=== PATIENT | female | born 1970 | race Caucasian/White ===

== ENCOUNTER → 2023-02-24 | Outpatient (CLI) | payer OTHER ==
[2023-02-24 21:00] LABS: Basophils # (A) 0.09 X 10*3/uL (0.00-0.10); Eosinophils # (A) 0.13 X 10*3/uL (0.04-0.35); Eosinophils % (A) 1.5 %; HCT 40.6 % (37.2-46.3); HGB 13.5 g/dL (12.0-15.0); Immature Grans, Automated 0.3 %; Lymphocytes % (A) 33.7 %; MCH 28.8 pg (27.0-32.0); MCHC 33.3 g/dL (32.0-37.0); MCV 86.8 fL (80.0-97.0); Mean Platelet Volume 10.9 fL (9.5-12.2); Monocytes % (A) 5.6 %; NRBC Per 100 WBC 0 /100 WBCS (0.0-0.0); Neutrophils # (A) 5.14 X 10*3/uL (1.80-7.70); Neutrophils % (A) 57.9 %; Platelet Count 334 X 10*3/uL (140-440); RBC 4.68 X 10*6/uL (4.10-5.20); RDW 13.2 % (11.5-14.5); WBC 8.89 X 10*3/uL (4.50-10.00)
[2023-02-25 03:13] LABS: ALT 31 U/L (8-44); AST 21 U/L (13-35); African American GFR (CKD) 116.8 (60.0-200.0); Albumin/Globulin Ratio 1.74 (1.60-3.17); Alkaline Phosphatase 85 U/L (41-126); BUN/Creat Ratio 14.93 Ratio (12.00-20.00); Blood Urea Nitrogen 10.3 mg/dL (9.0-27.0); Calcium 10.5 mg/dL (8.7-10.3); Carbon Dioxide 23.2 mmol/L (20.0-27.5); Chloride 103 mmol/L (96-109); Chol/HDL Ratio 5.26 Ratio; Globulin 2.8 g/dL (1.6-3.3); Glucose 89 mg/dL (70-110); LDL Cholesterol,Calculated 199.7 mg/dL (0.0-131.0); Non-African American GFR(CKD) 100.8 (60.0-200.0); Potassium 4.2 mmol/L (3.5-5.5); Sodium 140 mmol/L (135-145); Total Protein 7.8 g/dL (6.2-8.2)
[2023-02-25 04:59] LABS: Appearance,Urine Clear (Clear); Bilirubin,Urine Negative (Negative); Blood,Urine Negative (Negative); Color,Urine Yellow (Yellow); Ketones,Urine Trace mg/dL (Negative); Nitrite,Urine Negative (Negative); Urobilinogen,Urine 0.2 (0.2,1.0)
== END | disposition home or self-care (01) ==
LOC: LABWHC1 15:13
PROVIDERS: ATTEND Physician Assistant
DX: Z00.00 Encounter for general adult medical examination without abnormal findings (principal)
CPT/HCPCS: 36415; 80053; 80061; 81003; 84443; 85025

== ENCOUNTER → 2023-05-06 | Outpatient (CLI) | payer OTHER ==
[2023-05-06 16:35] LABS: ALT 28 U/L (8-44); AST 17 U/L (13-35); Calcium 10.6 mg/dL (8.7-10.3); Chol/HDL Ratio 3.86 Ratio; LDL Cholesterol,Calculated 107.8 mg/dL (0.0-131.0)
== END | disposition home or self-care (01) ==
LOC: LABWHC1 08:59
PROVIDERS: ATTEND Physician Assistant
DX: E83.52 Hypercalcemia (principal); E78.5 Hyperlipidemia, unspecified
CPT/HCPCS: 36415; 80061; 82310; 84450; 84460

== ENCOUNTER → 2023-05-20 | Outpatient (CLI) | payer OTHER ==
[2023-05-20 20:49] LABS: Calcium 10.6 mg/dL (8.7-10.3)
== END | disposition home or self-care (01) ==
LOC: LABWHC1 13:24
PROVIDERS: ATTEND Family Medicine
DX: E83.52 Hypercalcemia (principal)
CPT/HCPCS: 36415; 82306; 82310; 83970

== ENCOUNTER → 2023-05-26 | Outpatient (CLI) | payer OTHER | END | disposition home or self-care (01) | LOC: LABWHC1 13:26 | PROVIDERS: ATTEND Family Medicine | DX: E83.52 Hypercalcemia (principal) | CPT/HCPCS: 36415 ==

== ENCOUNTER → 2024-03-02 | Outpatient (CLI) | payer OTHER ==
[2024-03-02 15:44] LABS: Basophils # (A) 0.06 X 10*3/uL (0.00-0.10); Basophils % (A) 1.1 %; Eosinophils # (A) 0.19 X 10*3/uL (0.04-0.35); Eosinophils % (A) 3.6 %; HCT 42.7 % (37.2-46.3); HGB 13.6 g/dL (12.0-15.0); Lymphocytes # (A) 1.97 X 10*3/uL (0.90-5.00); Lymphocytes % (A) 37.5 %; MCH 27.8 pg (27.0-32.0); MCHC 31.9 g/dL (32.0-37.0); MCV 87.1 FL (80.0-97.0); Mean Platelet Volume 11.1 FL (9.5-12.2); Monocytes # (A) 0.34 X 10*3/uL (0.20-1.00); Monocytes % (A) 6.5 %; NRBC Per 100 WBC 0 X 10*3/uL (0.00-0.01); Neutrophils # (A) 2.69 X 10*3/uL (1.80-7.70); Neutrophils % (A) 51.1 %; Platelet Count 310 X 10*3/uL (140-440); RDW 13.4 % (11.5-14.5); WBC 5.26 X 10*3/uL (4.50-10.00)
[2024-03-02 16:00] LABS: ALT 24 U/L (8-44); AST 19 U/L (13-35); Albumin 4.7 g/dL (3.8-4.9); Albumin/Globulin Ratio 1.88 Ratio (1.60-3.17); Alkaline Phosphatase 85 U/L (41-126); BUN/Creat Ratio 19.38 Ratio (12.00-20.00); Blood Urea Nitrogen 15.5 mg/dL (9.0-27.0); Calcium 10.6 mg/dL (8.7-10.3); Carbon Dioxide 24.3 mmol/L (21.6-31.8); Chloride 103 mmol/L (96-109); Chol/HDL Ratio 5.02 Ratio; Globulin 2.5 g/dL (1.6-3.3); Glucose 99 mg/dL (70-110); LDL Cholesterol,Calculated 182.6 mg/dL (0.0-131.0); Potassium 4.6 mmol/L (3.5-5.5); Sodium 139 mmol/L (135-145); T4, Free (Free Thyroxine) 1.37 ng/dL (0.80-1.80); Total Bilirubin 0.3 mg/dL (0.3-1.2); Total Protein 7.2 g/dL (6.2-8.2)
== END | disposition home or self-care (01) ==
LOC: LABWHC1 07:47
PROVIDERS: ATTEND Physician Assistant
DX: Z00.00 Encounter for general adult medical examination without abnormal findings (principal)
CPT/HCPCS: 36415; 80053; 80061; 84439; 84443; 84481; 85025

== ENCOUNTER → 2024-03-29 | Outpatient (CLI) | payer OTHER ==
--- NOTE | 2024-04-02 12:29 | MM ---
Reason for Exam: Screening (asymptomatic). Last mammogram was performed 2 year(s) and 4 month(s) ago. Patient History: Menarche at age 12. First Full-Term at age 22. Patient has history of breast feeding. Last menstrual period: 11/24/2023 Risk Values: Lexy 5 year model risk: 1.0%. NCI Lifetime model risk: 8.5%. Prior Study Comparison: 07/13/2018 Bilateral Screening Mammogram, [facility]. 11/16/2021 Bilateral Screening Mammogram, [facility]. Tissue Density: The breasts are heterogeneously dense, which may obscure small masses. Findings: Analyzed By CAD. The pattern is symmetrical. Benign round calcifications are within the right breast. No significant interval change is evident. No suspicious groups of microcalcifications, spiculated or lobular masses, architectural distortion or other secondary signs of malignancy are mammographically apparent. Overall Assessment: Benign, BI-RAD 2 Management: Screening Mammogram of both breasts in 1 year. A negative mammogram report should not preclude additional follow up of suspicious palpable abnormalities. Patient should continue monthly self breast exam. A clinical breast exam by your physician is recommended on an annual basis and results should be correlated with mammographic findings. Note on Lexy scores and lifetime risk: 1. A Lexy score greater than 3% is considered moderate risk. If this is the case, consider specialist referral to assess eligibility for a risk reducing agent. 2. If overall lifetime risk for the development of breast cancer is 20% or higher, the patient may qualify for future screening with alternating mammogram and breast MRI. Electronically signed and approved by: Darrion Jimenez D.O. Radiologis
== END | disposition home or self-care (01) ==
LOC: RADMAMWWP 08:54
PROVIDERS: ATTEND Family Medicine
DX: Z12.31 Encounter for screening mammogram for malignant neoplasm of breast (principal)
CPT/HCPCS: 77063; 77067

== ENCOUNTER → 2024-05-04 | Outpatient (CLI) | payer OTHER ==
[2024-05-04 10:39] LABS: ALT 22 U/L (8-44); AST 19 U/L (13-35); Chol/HDL Ratio 3.45 Ratio; LDL Cholesterol,Calculated 110.9 mg/dL (0.0-131.0)
== END | disposition home or self-care (01) ==
LOC: LABWHC1 07:20
PROVIDERS: ATTEND Physician Assistant
DX: E78.00 Pure hypercholesterolemia, unspecified (principal)
CPT/HCPCS: 36415; 80061; 84450; 84460

== ENCOUNTER → 2025-03-16 | Outpatient (CLI) | payer OTHER ==
[2025-03-16 15:09] LABS: Basophils # (A) 0.05 X 10*3/uL (0.00-0.10); Eosinophils # (A) 0.18 X 10*3/uL (0.04-0.35); Eosinophils % (A) 3.5 %; HCT 41.9 % (37.2-46.3); HGB 13.5 g/dL (12.0-15.0); Lymphocytes # (A) 1.99 X 10*3/uL (0.90-5.00); Lymphocytes % (A) 39.2 %; MCH 28.1 pg (27.0-32.0); MCHC 32.2 g/dL (32.0-37.0); MCV 87.1 FL (80.0-97.0); Mean Platelet Volume 11.3 FL (9.5-12.2); Monocytes # (A) 0.33 X 10*3/uL (0.20-1.00); Monocytes % (A) 6.5 %; NRBC Per 100 WBC 0 X 10*3/uL (0.00-0.01); Neutrophils # (A) 2.52 X 10*3/uL (1.80-7.70); Neutrophils % (A) 49.6 %; Platelet Count 305 X 10*3/uL (140-440); RBC 4.81 X 10*6/uL (4.10-5.20); RDW 12.7 % (11.5-14.5); WBC 5.08 X 10*3/uL (4.50-10.00)
[2025-03-16 15:18] LABS: ALT 30 U/L (8-44); AST 20 U/L (13-35); Albumin 4.6 g/dL (3.8-4.9); Albumin/Globulin Ratio 1.92 Ratio (1.60-3.17); Alkaline Phosphatase 85 U/L (41-126); BUN/Creat Ratio 15.14 Ratio (12.00-20.00); Blood Urea Nitrogen 10.6 mg/dL (9.0-27.0); Calcium 9.8 mg/dL (8.7-10.3); Carbon Dioxide 24.4 mmol/L (21.6-31.8); Chloride 105 mmol/L (96-109); Globulin 2.4 g/dL (1.6-3.3); Glucose 94 mg/dL (70-110); LDL Cholesterol,Calculated 99.8 mg/dL (0.0-131.0); Potassium 4.5 mmol/L (3.5-5.5); Sodium 142 mmol/L (135-145); T4, Free (Free Thyroxine) 1.53 ng/dL (0.80-1.80); Total Bilirubin 0.3 mg/dL (0.3-1.2); VLDL Calculation 18.06 mg/dL (5.00-40.00)
[2025-03-16 16:16] LABS: Appearance,Urine Clear (Clear); Bilirubin,Urine Negative (Negative); Blood,Urine Negative (Negative); Color,Urine Yellow (Yellow); Ketones,Urine Negative (Negative); Nitrite,Urine Negative (Negative); PH, Urine 5.5; Specific Gravity,Urine 1.012 (1.001-1.030); Urobilinogen,Urine 0.2 E.U./DL
== END | disposition home or self-care (01) ==
LOC: LABWHC1 08:23
PROVIDERS: ATTEND Physician Assistant
DX: Z00.00 Encounter for general adult medical examination without abnormal findings (principal)
CPT/HCPCS: 36415; 80053; 80061; 81003; 83036; 84439; 84443; 84481; 85025

== ENCOUNTER → 2025-04-15 | Outpatient (CLI) | payer OTHER ==
--- NOTE | 2025-04-16 06:36 | MM ---
Reason for Exam: Screening (asymptomatic). Last mammogram was performed 1 year(s) and 1 month(s) ago. Patient History: Menarche at age 12. First Full-Term at age 22. Perimenopausal. Patient has history of breast feeding. Risk Values: Lexy 5 year model risk: 1.1%. NCI Lifetime model risk: 8.4%. Prior Study Comparison: 07/13/2018 Bilateral Screening Mammogram, [facility]. 11/16/2021 Bilateral Screening Mammogram, [facility]. 03/29/2024 Bilateral MG 3D screening mammo w/cad, [facility]. Tissue Density: The breasts are heterogeneously dense, which may obscure small masses. Findings: Analyzed By CAD. A few tiny benign appearing round calcifications in the right breast are redemonstrated. There is no suspicious new group of microcalcifications or new suspicious mass in either breast. Overall Assessment: Benign, BI-RAD 2 Management: Screening Mammogram of both breasts in 1 year. . Patient should continue monthly self-breast exams. A clinical breast exam by your physician is recommended on an annual basis. This exam should not preclude additional follow-up of suspicious palpable abnormalities. Note on Lexy scores and lifetime risk: 1. A Lexy score greater than 3% is considered moderate risk. If this is the case, consider specialist referral to assess eligibility for a risk reducing agent. 2. If overall lifetime risk for the development of breast cancer is 20% or higher, the patient may qualify for future screening with alternating mammogram and breast MRI. [facility], , 04/16/2025 6:33 AM. Electronically signed and approved by: Ifeanyi Lester M.D.
== END | disposition home or self-care (01) ==
LOC: RADMAMWWP 16:07
PROVIDERS: ATTEND Family Medicine
DX: Z12.31 Encounter for screening mammogram for malignant neoplasm of breast (principal); R92.333 Mammographic heterogeneous density, bilateral breasts
CPT/HCPCS: 77063; 77067